=== PATIENT | female | born 1980 | race Caucasian/White ===

== ENCOUNTER 2024-12-20 10:43 | Observation (INO) | payer OTHER ==
[2024-12-20 11:04] VITALS: BMI 23.5
[2024-12-20] MEDS ORDERED: ACETAMINOPHEN 325 MG TABLET (FP) ONE (12:09)
[2024-12-20 12:10] LABS: ABSOLUTE IMMATURE GRANULOCYTES 0.03 x10^3/uL (0.0-0.031); BASOPHILS # 0.04 x10^3/uL (0.01-0.08); EOSINOPHIL % 0.9 % (0.7-5.8); EOSINOPHILS # 0.07 x10^3/uL (0.04-0.36); HEMATOCRIT 41.8 % (34.1-44.9); HEMOGLOBIN 13.6 g/dL (11.2-15.7); MCHC 32.5 g/dl (32.2-35.5); MEAN CELL VOLUME 92.5 fl (79.4-94.8); MEAN PLT VOLUME 10.6 fl (9.4-12.3); MONOCYTE # 0.51 x10^3/uL (0.24-0.86); MONOCYTE % 6.7 % (4.7-12.5); PLATELET COUNT 253 x10^3/uL (182-369); RDW 11.5 % (12.2-17.1)
[2024-12-20 12:16] LABS: EPI CELLS 6 /uL (0-25.1); HCG,QUALITATIVE URINE Negative; HYALINE CASTS 0 /uL (0-3.1); PH,URINE 6.5 (5.0-8.0); URINE APPEARANCE CLEAR; URINE BACTERIA 182 /uL (0-1359); URINE BILIRUBIN NEGATIVE (NEGATIVE); URINE COLOR YELLOW; URINE GLUCOSE (UA) NEGATIVE (NEGATIVE); URINE KETONE NEGATIVE (NEGATIVE); URINE LEUK ESTERASE NEGATIVE (NEGATIVE); URINE NITRITE NEGATIVE (NEGATIVE); URINE PROTEIN NEGATIVE (NEGATIVE); URINE RBC 14 /uL (0-23.9); URINE UROBILINOGEN 0.2 mg/dL (0.2-1.0); URINE WBC 4 /uL (0-25.8)
[2024-12-20] MEDS: ACETAMINOPHEN 500 MG TABLET (FP) PO ONE (12:20)
[2024-12-20 12:29] LABS: POTASSIUM 3.9 mmol/L (3.5-5.1)
[2024-12-20 12:33] LABS: ALBUMIN 3.6 g/dl (3.4-5.0); BLOOD UREA NITROGEN 6.4 mg/dL (7-18); CALCIUM 9.5 mg/dL (8.5-10.1)
[2024-12-20 12:37] LABS: CREATININE 0.6 mg/dL (0.55-1.3)
[2024-12-20 12:38] LABS: BILIRUBIN,TOTAL 0.5 mg/dL (0.2-1); TOT PROT 7.8 g/dl (6.4-8.2)
[2024-12-20 13:26] LABS: HCV DIAGNOSTIC IN-HOUSE W/RFLX NON-REACTIVE (NONREACTIVE)
[2024-12-20 13:27] LABS: HIV INTERPRETATION NEGATIVE (NEGATIVE)
[2024-12-20] MEDS ORDERED: cefTRIAXone SODIUM 1 GM VIAL ONE (16:32)
[2024-12-20] MEDS ORDERED: ACETAMINOPHEN 1000 MG/100 ML BAG IVPB PRN (17:20)
[2024-12-20] MEDS ORDERED: AMPICILLIN NA/SULBACTAM NA 3 GM/100 ML BAG IVPB ONE (18:05)
[2024-12-20] MEDS: DEXTROSE 5%-NORMAL SALINE 1,000 ML IV SCH (18:15)
[2024-12-20] MEDS: AMPICILLIN NA/SULBACTAM NA 3 GM in SODIUM CHLORIDE 100 ML IVPB SCH (18:15)
[2024-12-20] MEDS ORDERED: DEXAMETHASONE SOD PHOSPHATE 4 MG/1 ML VIAL ONE (18:42)
[2024-12-20] MEDS ORDERED: LIDOCAINE HCL/PF 2% SDV 5ML VIAL ONE (18:42)
[2024-12-20] MEDS ORDERED: ONDANSETRON 4 MG/2 ML VIAL ONE (18:42)
[2024-12-20] MEDS ORDERED: KETOROLAC TROMETHAMINE 30 MG/1 ML VIAL ONE (18:42)
[2024-12-20] MEDS ORDERED: ROCURONIUM BROMIDE 50 MG/5 ML SYRINGE ONE (18:45)
[2024-12-20] MEDS ORDERED: PROPOFOL 20 ML ONE ×2 (18:46→20:09)
[2024-12-20] MEDS ORDERED: MIDAZOLAM HCL 2 MG/2 ML SINGLE DOSE VIAL ONE (18:46)
[2024-12-20] MEDS ORDERED: GLYCOPYRROLATE 0.2 MG/1 ML VIAL ONE (18:47)
[2024-12-20] MEDS ORDERED: PROMETHAZINE HCL 25 MG/1 ML VIAL IVPB PRN ×2 (19:19→20:48)
[2024-12-20] MEDS ORDERED: cefOXitin SODIUM 2 GM VIAL (RESTRICTED TO ID) IVPB ONE (19:26)
[2024-12-20] MEDS ORDERED: LACTATED RINGERS SOLUTION 1,000 ML IV SCH (19:30)
[2024-12-20] MEDS: cefOXitin SODIUM 2 GM VIAL (RESTRICTED TO ID) IVPB ONE (19:40)
[2024-12-20] MEDS: BUPIVACAINE HCL/PF 0.25% (2.5MG/ML) 10 ML VIAL IJ ONE (19:53)
[2024-12-20] MEDS ORDERED: HYDROmorphone HCl 2 MG/ML VIAL ONE (19:53)
[2024-12-20] MEDS ORDERED: ACETAMINOPHEN INJECTION 100 ML ONE (19:57)
[2024-12-20] MEDS: ACETAMINOPHEN 1000 MG/100 ML BAG IVPB ONE (19:59)
[2024-12-20] MEDS ORDERED: SUGAMMADEX SODIUM 200 MG/2 ML VIAL ONE (20:02)
[2024-12-20] MEDS ORDERED: KETOROLAC TROMETHAMINE 15 MG/ML VIAL IVPUSH PRN (20:48)
[2024-12-20] MEDS: LACTATED RINGERS SOLUTION 1,000 ML IV SCH (21:02)
[2024-12-21 02:04] VITALS: RESP 18
[2024-12-21] MEDS: ACETAMINOPHEN 500 MG TABLET (FP) PO SCH (03:05)
[2024-12-21 08:30] LABS: HEMOGLOBIN 12.7 g/dL (11.2-15.7); MCHC 32.6 g/dl (32.2-35.5); MEAN PLT VOLUME 11.3 fl (9.4-12.3); PLATELET COUNT 230 x10^3/uL (182-369); RDW 11.4 % (12.2-17.1)
[2024-12-21 08:47] LABS: POTASSIUM 4.2 mmol/L (3.5-5.1)
[2024-12-21 08:53] LABS: CALCIUM 9.1 mg/dL (8.5-10.1)
[2024-12-21 08:56] LABS: CREATININE 0.6 mg/dL (0.55-1.3)
[2024-12-21 08:57] LABS: BILIRUBIN,TOTAL 0.3 mg/dL (0.2-1); TOT PROT 6.5 g/dl (6.4-8.2)
[2024-12-21 11:06] VITALS: BP 105/70; PULSE 85; TEMP 98.1
== END 2024-12-21 11:18 | disposition home or self-care (01) ==
LOC: JER 10:43 → JERBED 16:15 → J7W 19:52
PROVIDERS: ADMIT Internal Medicine; ATTEND Internal Medicine
PROC: 0DTJ4ZZ Resection of Appendix, Percutaneous Endoscopic Approach (ICD-10-PCS; 2024-12-20)
PROC: 3E033NZ Introduction of Analgesics, Hypnotics, Sedatives into Peripheral Vein, Percutaneous Approach (ICD-10-PCS; principal; 2024-12-20 18:55)
DX: K35.80 Unspecified acute appendicitis (principal); G35 Multiple sclerosis; Z87.442 Personal history of urinary calculi
CPT/HCPCS: 36415; 74177-TC; 80053; 81003; 83690; 84703; 85025; 86140; 86803; 87086; 87389; 88304-TC; 94760; 99285-25; G0378; J0131; Q9967